=== PATIENT | female | born 1980 | race Caucasian/White ===

== ENCOUNTER 2018-06-14 10:13 | Inpatient (IN) | payer MEDICARE, MEDICAID | END 2018-06-17 12:00 | disposition still patient (30) | LOC: ADULT MH 10:13 | DX: F31.2 Bipolar disorder, current episode manic severe with psychotic features (principal) ==

== ENCOUNTER 2019-03-01 08:29 | Emergency (ER) | payer MEDICARE, MEDICAID ==
[~2019-03-01] VITALS: Ht 170.2 cm; Wt 80.0 kg
[~2019-03-01 08:29] MED LIST: ALBU6.7H9 INH; CEPH-572 PO; CEPH500C5 PO; HYDR-3686 PO; LITH150C8 PO; METO100T14 PO; OXYC-615 PO; RISP2TAB3 PO; RIVA20TA PO
[2019-03-01 08:34] VITALS: BP 112/68
[2019-03-01] MEDS ORDERED: GUAI120015 PO (08:50)
[2019-03-01] MEDS ORDERED: PRED10TA23 PO (08:50)
[2019-03-01] MEDS ORDERED: AMOX-422 PO (08:50)
== END 2019-03-01 09:24 | disposition home or self-care (01) ==
LOC: ER 08:29
DX: J32.9 Chronic sinusitis, unspecified (principal); I10 Essential (primary) hypertension; J44.9 Chronic obstructive pulmonary disease, unspecified; Z98.890 Other specified postprocedural states; Z88.6 Allergy status to analgesic agent; Z88.1 Allergy status to other antibiotic agents; Z79.899 Other long term (current) drug therapy
CPT/HCPCS: 99283